=== PATIENT | female | born 1985 | race Caucasian/White ===

== ENCOUNTER 2021-11-12 06:07 | Emergency (ER) | payer OTHER ==
[~2021-11-12] VITALS: Ht 160 cm; Wt 54.5 kg
[2021-11-12] MEDS ORDERED: COMBIVENT RESPIMAT 100-20MCG INHALER 4GM INH ONE (06:55)
[2021-11-12 08:24] VITALS: BP 129/77
== END 2021-11-12 08:28 | disposition home or self-care (01) ==
LOC: M ED 06:07
DX: R05.9 Cough, unspecified (principal)

== ENCOUNTER 2025-04-25 23:23 | Emergency (ER) | payer OTHER ==
[~2025-04-25] VITALS: Ht 160 cm; Wt 55.1 kg
[2025-04-25 23:25] VITALS: BP 131/76; TEMP 98.1; O2SAT 99
== END 2025-04-26 02:14 | disposition left against medical advice (07) ==
LOC: M ED 23:23
DX: Z53.21 Procedure and treatment not carried out due to patient leaving prior to being seen by health care provider (principal)

== ENCOUNTER → 2025-06-28 | Outpatient (CLI) | payer OTHER | LOC: M RAD 12:08 | PROVIDERS: ATTEND Internal Medicine Pulmonary Disease | DX: R91.8 Other nonspecific abnormal finding of lung field (principal) ==

== ENCOUNTER → 2025-07-31 | Outpatient (CLI) | payer OTHER | LOC: M CARPUL 10:03 | PROVIDERS: ATTEND Internal Medicine Pulmonary Disease | DX: R00.1 Bradycardia, unspecified (principal); R01.1 Cardiac murmur, unspecified; R91.8 Other nonspecific abnormal finding of lung field ==